=== PATIENT | female | born 1950 | race Caucasian/White ===

== ENCOUNTER 2018-06-14 12:10 | Emergency (ER) | payer OTHER ==
[~2018-06-14] VITALS: Ht 154.9 cm; Wt 60.8 kg
[2018-06-14] MEDS ORDERED: ADVAIR HFA 115/12 GM (12:19)
[2018-06-14] MEDS ORDERED: COZAAR50 MG (12:20)
[2018-06-14] MEDS ORDERED: CLARITIN10 M1 (12:20)
== END 2018-06-14 15:20 | disposition home or self-care (01) ==
LOC: ER 12:10
DX: B34.9 Viral infection, unspecified (principal); J11.1 Influenza due to unidentified influenza virus with other respiratory manifestations